=== PATIENT | male | born 1980 | race Caucasian/White ===

== ENCOUNTER 2025-05-20 19:44 | Emergency (ER) | payer SELFPAY ==
[2025-05-20 19:47] VITALS: BP 137/98; BMI 43.4
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
[2025-05-20 20:57] LABS: Hematocrit 44.3 % (39.0-52.0); Hemoglobin 15.6 g/dL (13.0-18.0); Mean Corp Hgb Conc. 35.2 g/dL (33.0-37.0); Mean Corpuscular Volume 82.3 fL (80.0-94.0); Nucleated Red Blood Cells % 0 % (-); Platelet Count 201 10^3/uL (130-400); Red Cell Dist. Width 12.6 % (11.5-14.5)
[2025-05-20 21:09] LABS: Chloride 110 mmol/L (98-107); Potassium 4.2 mmol/L (3.5-5.1); Sodium 141 mmol/L (135-145)
[2025-05-20 21:12] LABS: ALT (SGPT) 18 U/L (0-50); AST (SGOT) 25 U/L (17-59); Acetaminophen < 10 ug/ml (10-30); Albumin 4.8 g/dl (3.5-5.0); Alkaline Phosphatase 65 U/L (38-126); Blood Urea Nitrogen 23 mg/dl (9-20); Calcium 9.8 mg/dl (8.4-10.2); Carbon Dioxide 23 mmol/L (22-30); Estimated Creatinine Clearance > 125 ml/min; Glucose 97 mg/dl (70-99); Salicylate < 1.0 mg/dl (2.0-20.0); Total Protein 7.9 g/dl (6.3-8.2); eGFR > 60.00
[2025-05-21 06:38] VITALS: BP 151/99
[2025-05-21 12:58] VITALS: BP 139/96
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
== END 2025-05-21 14:45 ==
LOC: EMR 19:44
PROVIDERS: EMERGENCY PHYSICIAN Emergency Medicine
DX: R45.851 Suicidal ideations (principal); S60.812A Abrasion of left wrist, initial encounter; Y04.0XXA Assault by unarmed brawl or fight, initial encounter; Z59.71 Insufficient health insurance coverage; Z60.4 Social exclusion and rejection
CPT/HCPCS: 99285; 80053; 80143; 80179; 80306; 82077; 85025